=== PATIENT | male | born 1985 | race African-American/Black ===

== ENCOUNTER 2023-05-18 05:08 | Inpatient (IN) | payer MEDICAID ==
[~2023-05-18] VITALS: Ht 172.7 cm; Wt 91.6 kg
[2023-05-18] VITALS (19 sets, daily range): BP systolic 35–132; BP diastolic 22–93; PULSE 71–158; RESP 20–64; TEMP 95.5–98.1; O2SAT 93–100
[2023-05-18] MEDS ORDERED: ONDANSETRON 4 MG/2 ML VIAL ONE (05:11)
[2023-05-18] MEDS ORDERED: LORazepam 2 MG/ML VIAL ONE ×2 (05:11→08:57)
[2023-05-18] MEDS ORDERED: ONDANSETRON 4 MG/2 ML VIAL IVP ONE (05:20)
[2023-05-18] MEDS ORDERED: NACL 0.9% 2,000 ML IV SCH (05:20)
[2023-05-18] MEDS ORDERED: PANTOPRAZOLE 40 MG INJ VIAL IVP ONE (05:20)
[2023-05-18] MEDS ORDERED: LORazepam 2 MG/ML VIAL IVP ONE (05:20)
[2023-05-18 05:34] LABS: BASOPHILS # (AUTO) 0.1 K/uL (0.00-0.22); BASOPHILS % (AUTO) 0.3 % (0.0-2.0); EOSINOPHILS % (AUTO) 0.2 % (0.0-4.0); HEMATOCRIT 29.4 % (36-52); HEMOGLOBIN 9.9 g/dL (12.0-18.0); MEAN CORPUSCULAR HEMOGLOBIN 35 pg (27-31); MEAN CORPUSCULAR HGB CONC 34 g/dL (33-37); MEAN CORPUSCULAR VOLUME 104.8 fL (80-94); MONOCYTES # (AUTO) 1.5 K/uL (0.8-1.0); MONOCYTES % (AUTO) 9.3 % (1.7-9.3); NEUTROPHILS # (AUTO) 12.1 K/uL (1.8-7.7); NEUTROPHILS % (AUTO) 72.2 % (42.2-75.2); PLATELET COUNT (AUTO) 174 K/uL (140-450); RED CELL DISTRIBUTION WIDTH 14.5 % (11.6-13.7); WHITE BLOOD COUNT (AUTO) 16.7 K/uL (4.8-10.8)
[2023-05-18 06:00] LABS: INR 1.27 (0.8-1.2); PARTIAL THROMBOPLASTIN TIME 25.9 secs (22-35.6); PROTHROMBIN TIME 13.2 secs (10.8-13.4)
[2023-05-18 06:04] LABS: ANION GAP 26.5 (8-16); CALCIUM 8.5 mg/dL (8.5-10.1); POTASSIUM 3.5 mmol/L (3.5-5.1)
[2023-05-18] MEDS ORDERED: OCTREOTIDE ACETATE 100 MCG/ML VIAL IV ONE (06:05)
[2023-05-18] MEDS ORDERED: OCTREOTIDE ACETATE 1.25 MG in NACL 0.9% 250 ML IV SCH (06:05)
[2023-05-18 06:07] LABS: ALBUMIN 2.8 g/dL (3.4-5.0); BILIRUBIN,DIRECT 0.9 mg/dL (0.0-0.3); TOTAL BILIRUBIN 1.6 mg/dL (0.0-1.0); TOTAL PROTEIN, SERUM 7.4 g/dL (6.4-8.2)
[2023-05-18] MEDS ORDERED: PANTOPRAZOLE 80 MG in NACL 0.9% 100 ML IVP SCH (06:10)
[2023-05-18] MEDS ORDERED: THIAMINE 200 MG/2 ML VIAL IV ONE (06:10)
[2023-05-18] MEDS ORDERED: cefTRIAXone 1,000 MG VIAL ONE (06:16)
[2023-05-18] MEDS ORDERED: PANTOPRAZOLE 40 MG INJ VIAL ONE (06:24)
[2023-05-18] MEDS ORDERED: OCTREOTIDE ACETATE 1000 MCG/5 ML VIAL ONE (06:27)
[2023-05-18] MEDS ORDERED: PHENobarbital 65 MG/ML VIAL IV ONE (07:10)
[2023-05-18] MEDS ORDERED: PHENobarbital 130 MG/ML VIAL ONE (07:45)
[2023-05-18] MEDS ORDERED: THIAMINE 200 MG/2 ML VIAL ONE (07:47)
[2023-05-18 08:08] LABS: MAGNESIUM 1.8 mg/dL (1.8-2.4); PHOSPHORUS 5.4 mg/dL (2.5-4.9)
[2023-05-18] MEDS ORDERED: ONDANSETRON 4 MG/2 ML VIAL IVP PRN (08:30)
[2023-05-18] MEDS ORDERED: LORazepam 1 MG TAB PO PRN (08:30)
[2023-05-18] MEDS ORDERED: NACL 0.9% 1,000 ML IV SCH ×4 (08:30→13:50)
[2023-05-18] MEDS: chlordiazePOXIDE 25 MG CAP PO SCH ×3 (09:00→17:00)
[2023-05-18] MEDS ORDERED: MIDAZOLAM 5 MG/5 ML VIAL ONE (09:38)
[2023-05-18] MEDS ORDERED: diphenhydrAMINE 50 MG/ML VIAL ONE (09:38)
[2023-05-18] MEDS ORDERED: fentaNYL citrate 0.05 MG/ML VIAL ONE (09:38)
[2023-05-18] MEDS ORDERED: NOREPINEPHRINE 4 MG/4 ML VIAL IV ONE ×4 (09:44→23:45)
[2023-05-18] MEDS: NOREPINEPHRINE 4 MG in DEXTROSE 5% 250 ML IV PRN ×2 (09:55→12:13)
[2023-05-18] MEDS ORDERED: NOREPINEPHRINE 4 MG in DEXTROSE 5% 250 ML IV PRN (10:20)
[2023-05-18] MEDS ORDERED: PROPOFOL 1000 MG/100 ML PREMIX 100 ML IV PRN (10:20)
[2023-05-18] MEDS ORDERED: ALBUMIN HUMAN 25% 50 ML IV SCH (10:30)
[2023-05-18] MEDS ORDERED: fentaNYL citrate 0.05 MG/ML VIAL IVP SCH (10:35)
[2023-05-18] MEDS ORDERED: MIDAZOLAM 5 MG/5 ML VIAL IV SCH (10:35)
[2023-05-18] MEDS ORDERED: NOREPINEPHRINE 4 MG in DEXTROSE 5% 250 ML IV ONE (11:20)
[2023-05-18 11:25] LABS: INR 1.75 (0.8-1.2); PROTHROMBIN TIME 17.8 secs (10.8-13.4)
[2023-05-18 11:39] LABS: PARTIAL THROMBOPLASTIN TIME 60.8 secs (22-35.6)
[2023-05-18 11:45] LABS: LACTIC ACID 20.8 mmol/L (0.4-2.0)
[2023-05-18] MEDS: PHENYLEPHRINE 40 MG in NACL 0.9% 250 ML IV PRN ×3 (12:15→20:11)
[2023-05-18] MEDS: NOREPINEPHRINE 16 MG in DEXTROSE 5% 250 ML IV PRN ×3 (12:50→21:05)
[2023-05-18] MEDS ORDERED: LORazepam 1 MG TAB PO SCH (13:00)
[2023-05-18] MEDS: OCTREOTIDE ACETATE 1.25 MG in NACL 0.9% 250 ML IV SCH (13:10)
[2023-05-18 13:39] LABS: BLOOD GAS BASE EXCESS -18.4 mmol/L (-2.0-2.0); BLOOD GAS O2 SAT% 99.6 % (92.0-98.5); BLOOD GAS PCO2 41.4 mmHg (35-45); BLOOD GAS PH 7.043 (7.35-7.45); BLOOD GAS PO2 386.6 mmHg (75-100)
[2023-05-18] MEDS ORDERED: SODIUM BICARBONATE 8.4% PFS 50 MEQ/50 ML SYR IVP ONE ×2 (13:45→21:05)
[2023-05-18] MEDS ORDERED: SODIUM BICARBONATE 8.4% PFS 50 MEQ/50 ML SYR IVP SCH (14:00)
[2023-05-18 14:15] LABS: LACTIC ACID 15.1 mmol/L (0.4-2.0)
[2023-05-18] MEDS: SODIUM BICARBONATE 8.4% 150 MEQ in DEXTROSE 5% 1,000 ML IV SCH ×2 (14:33→23:33)
[2023-05-18] MEDS: MULTIVITAMIN 1 TAB PO SCH (16:12)
[2023-05-18] MEDS: FOLIC ACID 1 MG TAB PO SCH (16:12)
[2023-05-18] MEDS: THIAMINE 100 MG TAB PO SCH (16:12)
[2023-05-18] MEDS: PIPERACILLIN/TAZOBACTAM 3.375 GM in DEXTROSE 5% 50 ML IV SCH (17:41)
[2023-05-18 20:00] LABS: BASOPHILS # (AUTO) 0.1 K/uL (0.00-0.22); BASOPHILS % (AUTO) 0.4 % (0.0-2.0); EOSINOPHILS % (AUTO) 0.1 % (0.0-4.0); HEMATOCRIT 23.6 % (36-52); HEMOGLOBIN 7.9 g/dL (12.0-18.0); LYMPHOCYTES # (AUTO) 3.2 K/uL (2.0-11.5); LYMPHOCYTES % (AUTO) 12.5 % (20.5-51.1); MEAN CORPUSCULAR HEMOGLOBIN 31 pg (27-31); MEAN CORPUSCULAR HGB CONC 33 g/dL (33-37); MEAN CORPUSCULAR VOLUME 93.9 fL (80-94); MONOCYTES # (AUTO) 2.4 K/uL (0.8-1.0); MONOCYTES % (AUTO) 9.7 % (1.7-9.3); NEUTROPHILS # (AUTO) 19.5 K/uL (1.8-7.7); NEUTROPHILS % (AUTO) 77.3 % (42.2-75.2); PLATELET COUNT (AUTO) 83 K/uL (140-450); RED BLOOD CELL COUNT(AUTO) 2.51 MIL/uL (4.20-6.10); RED CELL DISTRIBUTION WIDTH 20.8 % (11.6-13.7)
[2023-05-18 20:05] LABS: WHITE BLOOD COUNT (AUTO) 25.2 K/uL (4.8-10.8)
[2023-05-18] MEDS ORDERED: PHENYLEPHRINE 10 MG/ML VIAL ONE ×2 (20:09→23:37)
[2023-05-18 20:20] LABS: BLOOD GAS PH 7.146 (7.35-7.45)
[2023-05-18 20:21] LABS: BLOOD GAS BASE EXCESS -18.2 mmol/L (-2.0-2.0); BLOOD GAS HCO3 9.2 mmol/L (22-26); BLOOD GAS O2 SAT% 86.4 % (92.0-98.5); BLOOD GAS PCO2 27.2 mmHg (35-45); BLOOD GAS PO2 65.4 mmHg (75-100)
[2023-05-18] MEDS: RIFAXIMIN 550 MG TAB PO SCH (21:00)
[2023-05-18] MEDS: LACTULOSE 20 GM/30 ML UDC PO SCH (21:00)
[2023-05-18] MEDS: PANTOPRAZOLE 40 MG INJ VIAL IVP SCH (21:04)
[2023-05-18 21:24] LABS: ALANINE AMINOTRANSFERASE 1411 U/L (12-78); ALBUMIN 1.9 g/dL (3.4-5.0); ALKALINE PHOSPHATASE 69 U/L (50-136); ASPARTATE AMINOTRANSFERASE 2300 U/L (15-37); CALCIUM 7.4 mg/dL (8.5-10.1); CARBON DIOXIDE 13.6 mmol/L (21-32); CHLORIDE 106 mmol/L (98-107); CREATININE 2.7 mg/dL (0.6-1.3); GFR ARICAN-AMERICAN 34 mL/min (>90); GFR NON ARICAN-AMERICAN 28 mL/min (>90); GLUCOSE 91 mg/dL (74-106); SODIUM SERUM 142 mmol/L (136-145); TOTAL BILIRUBIN 2.4 mg/dL (0.0-1.0); UREA NITROGEN, BLOOD 25 mg/dL (7-18)
[2023-05-18 21:26] LABS: POTASSIUM 8.6 mmol/L (3.5-5.1)
[2023-05-18] MEDS ORDERED: DEXTROSE 50% 50 ML SYR IVP ONE (21:45)
[2023-05-18] MEDS ORDERED: INSULIN REGULAR, HUMAN 100 UNIT/ML VIAL IV ONE (21:45)
[2023-05-18] MEDS ORDERED: CALCIUM GLUC 1 GM/50 mL NS BAG 50 ML IV ONE (22:15)
[2023-05-18] MEDS ORDERED: EPINEPHrine 1 MG/ML AMP ONE ×2 (22:26)
[2023-05-19] VITALS (26 sets, daily range): BP systolic 38–138; BP diastolic 18–105; PULSE 22–119; RESP 18–74; TEMP 94.6–97.6; O2SAT 85–100
[2023-05-19] MEDS: PIPERACILLIN/TAZOBACTAM 3.375 GM in DEXTROSE 5% 50 ML IV SCH ×4 (00:40→17:11)
[2023-05-19] MEDS ORDERED: PHENYLEPHRINE 10 MG/ML VIAL ONE ×2 (02:40→05:51)
[2023-05-19] MEDS: PHENYLEPHRINE 40 MG in NACL 0.9% 250 ML IV PRN ×5 (02:42→16:56)
[2023-05-19] MEDS ORDERED: NOREPINEPHRINE 4 MG/4 ML VIAL IV ONE (04:00)
[2023-05-19] MEDS: NOREPINEPHRINE 16 MG in DEXTROSE 5% 250 ML IV PRN ×4 (04:16→18:02)
[2023-05-19] MEDS: EPINEPHrine 1 mg/mL 1 MG in DEXTROSE 5% 250 ML IV PRN ×2 (05:12→07:20)
[2023-05-19 05:17] LABS: BASOPHILS # (AUTO) 0.1 K/uL (0.00-0.22); BASOPHILS % (AUTO) 0.5 % (0.0-2.0); EOSINOPHILS % (AUTO) 0.2 % (0.0-4.0); LYMPHOCYTES % (AUTO) 26.7 % (20.5-51.1); MEAN CORPUSCULAR HEMOGLOBIN 32 pg (27-31); MEAN CORPUSCULAR HGB CONC 34 g/dL (33-37); MEAN CORPUSCULAR VOLUME 94.6 fL (80-94); MONOCYTES # (AUTO) 1.5 K/uL (0.8-1.0); MONOCYTES % (AUTO) 8.2 % (1.7-9.3); NEUTROPHILS # (AUTO) 12.1 K/uL (1.8-7.7); NEUTROPHILS % (AUTO) 64.4 % (42.2-75.2); PLATELET COUNT (AUTO) 64 K/uL (140-450); RED BLOOD CELL COUNT(AUTO) 2.11 MIL/uL (4.20-6.10); RED CELL DISTRIBUTION WIDTH 22.5 % (11.6-13.7); WHITE BLOOD COUNT (AUTO) 18.8 K/uL (4.8-10.8)
[2023-05-19 05:59] LABS: HEMATOCRIT 19.9 % (36-52); HEMOGLOBIN 6.7 g/dL (12.0-18.0)
[2023-05-19] MEDS ORDERED: OCTREOTIDE ACETATE 1.25 MG in NACL 0.9% 250 ML IV SCH (06:00)
[2023-05-19 06:21] LABS: ANION GAP 38.8 (8-16); CALCIUM 6.4 mg/dL (8.5-10.1); CARBON DIOXIDE 9.5 mmol/L (21-32); POTASSIUM 5.3 mmol/L (3.5-5.1)
[2023-05-19 06:30] LABS: CREATININE 4.1 mg/dL (0.6-1.3)
[2023-05-19] MEDS ORDERED: EPINEPHrine 1 MG/ML AMP ONE ×3 (07:13→18:40)
[2023-05-19] MEDS: SODIUM BICARBONATE 8.4% 150 MEQ in DEXTROSE 5% 1,000 ML IV SCH ×2 (07:43→15:29)
[2023-05-19] MEDS ORDERED: FOAM DRESSING TP PRN (08:20)
[2023-05-19] MEDS ORDERED: CALCIUM GLUC 1 GM/50 mL NS BAG 50 ML IV SCH (08:35)
[2023-05-19] MEDS ORDERED: INSULIN REGULAR, HUMAN 100 UNIT/ML VIAL IVP SCH (08:36)
[2023-05-19] MEDS ORDERED: DEXTROSE 50% 50 ML SYR IVP SCH (08:36)
[2023-05-19] MEDS: THIAMINE 100 MG TAB PO SCH (09:00)
[2023-05-19] MEDS: EPINEPHrine 1 mg/mL 10 MG in DEXTROSE 5% 250 ML IV PRN ×2 (09:20→11:14)
[2023-05-19 10:01] LABS: PROTHROMBIN TIME > 120.0 secs (10.8-13.4)
[2023-05-19] MEDS: PANTOPRAZOLE 40 MG INJ VIAL IVP SCH (10:10)
[2023-05-19] MEDS: LACTULOSE 20 GM/30 ML UDC PO SCH (10:11)
[2023-05-19] MEDS ORDERED: SODIUM BICARBONATE 8.4% PFS 50 MEQ/50 ML SYR IVP SCH (10:26)
[2023-05-19] MEDS: FOLIC ACID 1 MG TAB PO SCH (12:48)
[2023-05-19] MEDS: chlordiazePOXIDE 25 MG CAP PO SCH ×3 (12:49→17:10)
[2023-05-19] MEDS: RIFAXIMIN 550 MG TAB PO SCH (12:50)
[2023-05-19] MEDS: MULTIVITAMIN 1 TAB PO SCH (12:50)
[2023-05-19] MEDS ORDERED: FOAM DRESSING TP SCH (13:00)
[2023-05-19] MEDS ORDERED: EPINEPHrine 1 mg/mL 10 MG in DEXTROSE 5% 250 ML IV PRN (13:15)
[2023-05-19] MEDS: OCTREOTIDE ACETATE 1.25 MG in NACL 0.9% 250 ML IV SCH (13:57)
[2023-05-19 14:03] LABS: BASOPHILS # (AUTO) 0.1 K/uL (0.00-0.22); BASOPHILS % (AUTO) 0.6 % (0.0-2.0); EOSINOPHILS # (AUTO) 0.1 K/uL (0-0.4); EOSINOPHILS % (AUTO) 0.4 % (0.0-4.0); LYMPHOCYTES # (AUTO) 4.1 K/uL (2.0-11.5); LYMPHOCYTES % (AUTO) 26.1 % (20.5-51.1); MEAN CORPUSCULAR HEMOGLOBIN 32 pg (27-31); MEAN CORPUSCULAR HGB CONC 33 g/dL (33-37); MEAN CORPUSCULAR VOLUME 96.2 fL (80-94); MONOCYTES # (AUTO) 1.6 K/uL (0.8-1.0); MONOCYTES % (AUTO) 10.3 % (1.7-9.3); NEUTROPHILS # (AUTO) 9.9 K/uL (1.8-7.7); NEUTROPHILS % (AUTO) 62.6 % (42.2-75.2); PLATELET COUNT (AUTO) 50 K/uL (140-450); RED BLOOD CELL COUNT(AUTO) 1.66 MIL/uL (4.20-6.10); RED CELL DISTRIBUTION WIDTH 19.4 % (11.6-13.7); WHITE BLOOD COUNT (AUTO) 15.8 K/uL (4.8-10.8)
[2023-05-19 14:18] LABS: HEMOGLOBIN 5.3 g/dL (12.0-18.0)
[2023-05-19 14:23] LABS: ANION GAP 38.3 (8-16); CARBON DIOXIDE 9.5 mmol/L (21-32); POTASSIUM 5.8 mmol/L (3.5-5.1)
[2023-05-19 14:24] LABS: CREATININE 4.9 mg/dL (0.6-1.3)
[2023-05-19 14:29] LABS: CALCIUM 5.6 mg/dL (8.5-10.1)
[2023-05-19] MEDS: VASOPRESSIN 40 UNITS in NACL 0.9% 250 ML IV PRN ×2 (16:09→17:06)
[2023-05-19] MEDS ORDERED: LORazepam 2 MG/ML VIAL IVP ONE (19:03)
[2023-05-20 06:08] LABS: HEPATITIS A ANTIBODY IGM Negative (Negative); HEPATITIS B CORE AB TOTAL Negative (Negative); HEPATITIS B CORE, IGM Negative (Negative); HEPATITIS B SURFACE ANTIBODY Non Reactive (.); HEPATITIS B SURFACE ANTIGEN Negative (Negative); HEPATITIS C VIRUS ANTIBODY Non Reactive (Non Reactive)
[2023-05-22 13:30] LABS: HEPATITIS A ANTIBODY TOTAL Positive (Negative)
== END 2023-05-19 19:03 | DRG 280 ==
LOC: MED 05:08 → MIC 08:26
PROVIDERS: ADMIT Student in an Organized Health Care Education/Training Program; ATTEND Student in an Organized Health Care Education/Training Program
PROC: 5A1945Z Respiratory Ventilation, 24-96 Consecutive Hours (ICD-10-PCS; 2023-05-18)
PROC: 06L38CZ Occlusion of Esophageal Vein with Extraluminal Device, Via Natural or Artificial Opening Endoscopic (ICD-10-PCS; 2023-05-18)
PROC: 30233N1 Transfusion of Nonautologous Red Blood Cells into Peripheral Vein, Percutaneous Approach (ICD-10-PCS; 2023-05-18)
PROC: 0BH17EZ Insertion of Endotracheal Airway into Trachea, Via Natural or Artificial Opening (ICD-10-PCS; 2023-05-18)
PROC: 05HY33Z Insertion of Infusion Device into Upper Vein, Percutaneous Approach (ICD-10-PCS; 2023-05-18)
PROC: 5A12012 Performance of Cardiac Output, Single, Manual (ICD-10-PCS; principal; 2023-05-19)
PROC: 30233R1 Transfusion of Nonautologous Platelets into Peripheral Vein, Percutaneous Approach (ICD-10-PCS; 2023-05-19)
DX: K70.30 Alcoholic cirrhosis of liver without ascites (principal); I46.9 Cardiac arrest, cause unspecified; D65 Disseminated intravascular coagulation [defibrination syndrome]; J96.01 Acute respiratory failure with hypoxia; N17.0 Acute kidney failure with tubular necrosis; I85.11 Secondary esophageal varices with bleeding; E72.20 Disorder of urea cycle metabolism, unspecified; R57.8 Other shock; E87.20 Acidosis, unspecified; K76.82 Hepatic encephalopathy; G93.1 Anoxic brain damage, not elsewhere classified; F10.10 Alcohol abuse, uncomplicated; Y90.9 Presence of alcohol in blood, level not specified; Z87.891 Personal history of nicotine dependence
CPT/HCPCS: 36415; 36430; 36600; 71045; 76705; 80048; 80053; 80076; 82140; 82803; 82948; 83605; 83735; 84100; 84484; 85025; 85610; 85730; 86704; 86706; 86708; 86709; 86803; 86886; 86900; 86901; 86920; 87040; 87081; 87340; 92950; 93005; 94002; 94003; 96365; 96375; 99291; 99292; C9113; G0482; J0171; J0610; J0696; J1200; J1815; J2060; J2250; J2354; J2370; J2405; J2543; J2560; J3010; J3411; J3490; J7030; J7060; P9016; P9035; P9046; Q0092